=== PATIENT | female | born 1975 | race Caucasian/White ===

== ENCOUNTER 2023-02-15 12:47 | Emergency (ER) | payer BC, MEDICAID ==
[2023-02-15] MEDS ORDERED: Cyclobenzaprine 10 MG Tab PO ONE (13:47)
[2023-02-15] MEDS ORDERED: Acetaminophen 500 MG Tab PO ONE (13:47)
[2023-02-15] MEDS ORDERED: Ibuprofen 800 MG Tab PO ONE (13:47)
[2023-02-15 14:10] LABS: BASOPHILS ABSOLUTE AUTO 0.1 x10-3/uL (0.0-0.1); BASOPHILS PERCENT AUTO 1.1 % (0.2-1.5); EOSINOPHILS ABSOLUTE AUTO 0.6 x10-3/uL (0.0-0.8); EOSINOPHILS PERCENT AUTO 7.4 % (0.6-8.1); HEMATOCRIT 43.2 % (34.2-48.2); HEMOGLOBIN 14.1 g/dL (11.4-15.5); LYMPHOCYTES ABSOLUTE AUTO 2.7 x10-3/uL (1.0-4.4); LYMPHOCYTES PERCENT AUTO 32.9 % (18.4-52.1); MEAN CORPUSCULAR HEMOGLOBIN 29.1 pg (23.9-33.9); MEAN CORPUSCULAR HGB CONC 32.7 g/dL (31.9-34.8); MEAN CORPUSCULAR VOLUME 88.9 fL (76.7-100.5); MEAN PLATELET VOLUME 9.9 fL (7.1-12.4); MONOCYTES ABSOLUTE AUTO 0.5 x10-3/uL (0.3-1.0); MONOCYTES PERCENT AUTO 5.7 % (4.4-15.7); NEUTROPHILS ABSOLUTE AUTO 4.4 x10-3/uL (1.5-6.3); NEUTROPHILS PERCENT AUTO 52.9 % (30.8-76.2); PLATELET COUNT,PLT 301 x10(3)uL (151-488); RED BLOOD CELL COUNT 4.85 x10(6)uL (3.60-5.20); RED CELL DISTRIBUTION WIDTH 13.8 % (12.3-16.5); WHITE BLOOD CELL COUNT,WBC 8.2 x10-3/uL (3.0-10.3)
[2023-02-15 14:15] LABS: BLOOD UREA NITROGEN,BUN 9 mg/dL (7-18); BUN/CREATININE RATIO 12.9 (9-20); CALCIUM 9.7 mg/dL (8.6-10.2); CARBON DIOXIDE,CO2 29 mmol/L (21-32); CHLORIDE,CL 105 mmol/L (100-110); CREATININE 0.7 mg/dL (0.55-1.02); ESTIMATED GFR 107 mL/min (>60); GLUCOSE RANDOM 95 mg/dL (80-116); POTASSIUM,K 4.5 mmol/L (3.5-5.3); SODIUM,NA 141 mmol/L (135-145)
[2023-02-15 14:19] LABS: ALANINE AMINOTRANSFERASE,ALT 32 U/L (12-36); ALBUMIN 3.7 g/dL (3.5-5.2); ALKALINE PHOSPHATASE 111 IU/L (56-112); ASPARTATE AMNIOTRANSFERASE,AST 17 IU/L (5-25); BILIRUBIN TOTAL 0.1 mg/dL (0.1-1.3); PROTEIN TOTAL,TP 7.5 g/dL (6.0-8.0)
== END 2023-02-15 15:26 | disposition home or self-care (01) ==
LOC: FB.ED 12:47
DX: M54.16 Radiculopathy, lumbar region (principal); M54.42 Lumbago with sciatica, left side; R07.9 Chest pain, unspecified; I10 Essential (primary) hypertension; J45.909 Unspecified asthma, uncomplicated; Z72.0 Tobacco use; Z88.5 Allergy status to narcotic agent
CPT/HCPCS: 36415; 71045; 80053; 84484; 85025; 85379; 93005; 99285; A9270